=== PATIENT | female | born 1970 | race Two or more races ===

== ENCOUNTER → 2020-11-20 | Outpatient (CLI) | payer OTHER ==
[~2020-11-20] MED LIST: CHOL500050 PO; OXYC-325 PO
== END ==
LOC: LAB 11:03
PROVIDERS: ATTEND Surgery
DX: Z01.812 Encounter for preprocedural laboratory examination (principal); K42.9 Umbilical hernia without obstruction or gangrene; Z20.828 Contact with and (suspected) exposure to other viral communicable diseases
CPT/HCPCS: U0003

== ENCOUNTER 2020-11-24 07:41 | Day surgery (SDC) | payer OTHER ==
[~2020-11-24] VITALS: Ht 160 cm; Wt 101.5 kg
[~2020-11-24 07:41] MED LIST changes: +BUPIVACAINE-EPI 0.5% 30 ML VIAL KIT. ONE; +HYDROmorphone 2 MG/ML VIAL IV PRN; +LIDOCAINE 1% PF 2 ML VIAL. ID PRN; +MORPHINE SULFATE 2 MG/ML VIAL. IV PRN; +ONDANSETRON PF 4 MG/2 ML VIAL. IV PRN; -OXYC-325 PO; +PROCHLORPERAZINE 10 MG/2 ML VIAL. IV PRN; +fentaNYL PF VIAL 100 MCG/2 ML VIAL IV PRN
[2020-11-24] MEDS ORDERED: PROPOFOL 10 MG/ML (20ML) VIAL. IV ONE (08:12)
[2020-11-24] MEDS ORDERED: ONDANSETRON PF 4 MG/2 ML VIAL. ONE (08:12)
[2020-11-24] MEDS ORDERED: LIDOCAINE 2% PF 5 ML VIAL. ONE (08:12)
[2020-11-24] MEDS ORDERED: DEXAMETHASONE SOD PHOS 4 MG/ML VIAL ONE (08:12)
[2020-11-24] MEDS ORDERED: fentaNYL PF VIAL 100 MCG/2 ML VIAL ONE ×3 (08:13→10:52)
[2020-11-24] MEDS: IV RINGERS,LACTATED 1000ML 1,000 ML IV SCH ×2 (08:19→10:54)
[2020-11-24] MEDS ORDERED: ROCURONIUM 50 MG/5 ML VIAL. ONE (09:27)
[2020-11-24] MEDS ORDERED: NEOSTIGMINE METHYLSULFATE 5 MG/5 ML SYRINGE. ONE (10:00)
[2020-11-24] MEDS ORDERED: GLYCOPYRROLATE 1 MG/5 ML VIAL. ONE (10:00)
[2020-11-24] MEDS ORDERED: PHENYLEPHRINE in 0.9% NACL PF 1 MG/10 ML SYRINGE. IV ONE (10:04)
[2020-11-24] MEDS ORDERED: SEVOFLURANE 61 TO 120 MINUTES. IH ONE (10:12)
[2020-11-24] MEDS ORDERED: KETOROLAC 30 MG/ML VIAL. ONE (10:12)
--- NOTE | 2020-11-24 10:26 | PDOC4 ---
Operative Note Operative Note Operative Note: Preoperative Diagnosis: Umbilical hernia Postoperative Diagnosis: Same Procedure: Umbilical hernia repair with mesh Surgeon: Oleg Orthopedic Technician: Paulino QUINTERO Anesthesia: General EBL: 10 mL Specimen: None Drains: None Complications: None Indication: The patient is a 50-year-old female was referred with a hernia located near her umbilicus. She was offered surgical repair. The risks of surgery were discussed which include bleeding, infection, recurrence, pain, anesthetic risk, potential need for additional surgery procedure. She und erstands and would like to proceed. Description: The patient was taken the operating room and placed supine on the operating table. General anesthesia was performed. The abdomen is prepped with ChloraPrep and draped in a standard surgical manner. A curved infraumbilical incision was made in the skin with a scalpel. Cautery dissection was carried down to the fascia. The umbilical tissue was elevated off the fascia exposing moderate-sized hernia defect. The surrounding fascia was inspected and showed n o other defects. A preperitoneal plane was then developed with blunt dissection. From within the abdominal wall was palpated and no other defects were noted. A medium sized Ventralex ST mesh was then placed in this preperitoneal plane. The mesh was sutured to the abdominal wall at the 12, 3, 6, 9:00 positions using 0 Prolene in a horizontal mattress fashion. The fascia was closed over the mesh with 0 Prolene. The umbilicus was secured back to the fascia with 0 Vicryl. The subcutaneous tissue was closed with 3-0 Vicryl and skin approximated with 4 Monocryl. The incision was infiltrated with half percent Marcaine with epinephrine. Steri-Strips and a sterile dressing were applied. The patient tolerated the procedure well and was sent to the recovery room in stable condition. At the end the case all counts were correct. FROY UMANA MD Nov 24, 2020 10:26
--- NOTE | 2020-11-24 10:27 | DISCH ---
DISCHARGE INSTRUCTIONS Condition on Discharge Condition on Discharge: Stable Activity After Discharge Activity Instructions for Disc: Other, see below (no lifting over 20 lbs, s trenuous activity X 4 weeks) Diet after Discharge Diet after Discharge: Regular Follow-Up Follow up with: Dr Umana in 2 weeks in office, call for appt [phone] FROY UMANA MD Nov 24, 2020 10:27
[2020-11-24] MEDS ORDERED: oxyCODONE/APAP 5/325 1 TAB TABLET PO ONE ×2 (10:30)
[2020-11-24] MEDS ORDERED: MORPHINE SULFATE 2 MG/ML VIAL. ONE (10:51)
[2020-11-24] MEDS ORDERED: PROCHLORPERAZINE 10 MG/2 ML VIAL. ONE (10:52)
[2020-11-24] MEDS ORDERED: OXYC-325 PO (11:05)
[2020-11-24 11:43] VITALS: BP 134/62
== END 2020-11-24 12:41 | disposition home or self-care (01) ==
LOC: SURG 07:41
PROVIDERS: ATTEND Surgery
DX: K42.9 Umbilical hernia without obstruction or gangrene (principal); E66.9 Obesity, unspecified; Z98.51 Tubal ligation status; Z98.890 Other specified postprocedural states; Z79.899 Other long term (current) drug therapy
CPT/HCPCS: 49585; C1781; J0690; J0780; J1100; J1885; J2270; J2370; J2405; J2704; J2710; J3010; J3490; J7120